=== PATIENT | female | born 1970 | race Caucasian/White ===

== ENCOUNTER → 2022-01-13 15:12 | Outpatient (BNVA) | payer BC, MEDICAID, SELFPAY | PROVIDERS: Family Provider Nurse Practitioner Family; PCP Registered Nurse; Visit Provider Surgery | DX: K42.9 Umbilical hernia without obstruction or gangrene (principal); Z12.11 Encounter for screening for malignant neoplasm of colon | CPT/HCPCS: 99203 ==

== ENCOUNTER 2022-02-25 06:41 | Day surgery (SDC) | payer BC, MEDICAID, SELFPAY ==
--- NOTE | 2022-02-25 06:17 | W.PM.OPSFHP ---
Same Day Surgery H&P Indication for Procedure/HPI DATE OF PROCEDURE: February 25, 2022 CHIEF COMPLAINT/INDICATIONFOR SURGICAL PROCEDURE: Screening colonoscopy PREOP DIAGNOSIS: Screening colonoscopy PLANNED PROCEDURE: Operation Date: 02/25/22 08:15 Proposed Procedures p Colonoscopy 14661,Z12.11(Not Applicable) - Matty Sierra MD 01/13/2022 This is a pleasant 51 years old female patient is referred to my practice with reducible periumbilical hernia.? Patient intermittently develops symptoms and discomfort with the hernia but for the most part she is able to reduce it back.? Patient also is due for screening colonoscopy as she never had one before.? Unfortunately she continues to smoke 1 pack/day but she did cut down from 2 packs/day.? She denies colon cancer history. Interim history 02/25/2022 Patient comes today for screening colonoscopy ROS All systems have been reviewed negative except as for the above or per problem list. Medications/Allergies* Home Medications Medication Instructions Recorded Confirmed Type THC gummy 1 gummy as directed PRN PRN Pain 01/13/22 02/25/22 History aspirin 81 mg tablet,delayed 81 mg PO DAILY 02/23/22 02/25/22 History release Allergies/Adverse Reactions Allergy/AdvReac Type Severity Reaction Status Date / Time Sulfa (Sulfonamide Allergy Unknown Verified 02/25/22 06:18 Antibiotics) Pertinent History/Comorbid Conditions* Family History (Updated 01/06/22 @ 15:46 by Silvana Castro LPN) Lupus Mother CHF (congestive heart failure) Mother Cancer Father bladder Social History Smoking and tobacco status: current every day smoker Alcohol intake: never Adopted: No Caregiver/support person: No Lives independently: No service: No Current occupational status: employed Sexually active: Yes Current gender identity: Female Pertinent Exam Findings alert, oriented x 3, regular rate & rhythm and procedure specific exam findings (Abdominal examination nontender nondistended soft stable hernia exam) Recommendations Surgery/Procedure today (Screening colonoscopy) Coding Level of Care Code Acute Dictating Transcribing Machine Servicer for Doroteo Casas
[2022-02-25 07:11] VITALS: BP 134/92; PULSE 69; RESP 16; TEMP 36.9; O2SAT 94
[2022-02-25] MEDS: sodium chloride 0.9% 1,000 ML 30 ML IV (07:19)
--- NOTE | 2022-02-25 08:03 | ANES.PREANE2 ---
Pre-Anesthetic Assessment Height/Weight: Height 1.55 m Weight 77.111 kg Temp Pulse Resp BP Pulse Ox O2 Del Method 98.4 F 69 16 134/92 94 02/25/22 07:11 02/25/22 07:11 02/25/22 07:11 02/25/22 07:11 02/25/22 07:11 02/25/22 07:11 Preop Diagnosis: Screening colonoscopy Operation Date: 02/25/22 08:15 Proposed Procedures p Colonoscopy 31178,Z12.11(Not Applicable) - Matty Sierra MD Familial anesthetic complications: Daughter has a rash, patient denies hx of complications Was Beta Maria Teresa taken within 24 hours: N/A Was Clonidine taken within 24 hours: N/A Last intake: Intake Last Liquid Date 02/24/22 Last Liquid Time 22:30 Last Solid Date 02/23/22 Last Solid Time 00:00 Social Tobacco and No alcohol Exam alert, oriented x 3, clear to auscultation bilaterally and regular rate & rhythm Airway Submandibular: within normal limits Cervical ROM: within normal limits Mallampati: Class II Dentition: false Pulmonary None reported CV/HEM Coronary Artery Disease (Hx of cardiac stents ) and Myocardial Infarction METS > 4 None reported Hepatic None reported GI Gastroesophageal Reflux Disease (Well controlled ) Metabolic None reported Musc/skel None reported Neuropsych None reported Anesthetic Plan ASA status: 3 Anesthesia: Anesthesia Evaluation Other: I discussed with the patient risks, goals, and benefits of MAC and general anesthesia. We discussed spectrum of MAC anesthesia including conversion to general as well as possibility of recall of intraoperative stimuli including discomfort/pain. Patient agrees to proceed with MAC. Risk of > 500 ml blood loss (7ml/kg in children): No Medications/Allergies Home Medications Medication Instructions Recorded Confirmed Last Taken Type THC gummy 1 gummy as directed PRN PRN Pain 01/13/22 02/25/22 02/22/22 History aspirin 81 mg tablet,delayed 81 mg PO DAILY 02/23/22 02/25/22 02/20/22 History release Allergies Allergy/AdvReac Type Severity Reaction Status Date / Time Sulfa (Sulfonamide Allergy Unknown Verified 02/25/22 06:18 Antibiotics) Current Medications Generic Name Dose Route Start Last Admin Trade Name Freq PRN Reason Stop Dose Admin Sodium Chloride 1,000 mls @ 30 mls/hr 02/25/22 07:00 02/25/22 07:19 Sodium Chloride 0.9% IV 02/26/22 06:59 30 mls/hr .Q24H JENNIE Administration PFSH Anesthesia Medical History CAD (coronary artery disease) Smoking Surgical History Stented coronary artery Family History Mother Lupus CHF (congestive heart failure) Father Cancer bladder Social History Smoking and tobacco status: current every day smoker Alcohol intake: never Adopted: No Caregiver/support person: No Lives independently: No service: No Current occupational status: employed Sexually active: Yes Current gender identity: Female Data Anesthesia Cardiac Studies: No Data to Display
[2022-02-25 08:39] VITALS: BP 131/72; PULSE 73; RESP 16; TEMP 36.1; O2SAT 94
--- NOTE | 2022-02-25 08:47 | ANE.PACU2 ---
Inpatient post-anesthesia follow up: Airway intact: Yes Vital signs: Temperature 97 F Pulse Rate 73 Respiratory Rate 16 Blood Pressure 131/72 Pulse Oximetry 94 Oxygen Delivery Me thod Room Air Oxygen Flow Rate Fraction of Inspir ed Oxygen Hydration adequate: Yes Nausea and vomiting: No Pain level: 1 Mental status: Baseline
[2022-02-25 08:51] VITALS: BP 124/85; PULSE 70; RESP 18; O2SAT 96
== END 2022-02-25 09:06 | disposition home or self-care (01) ==
PROVIDERS: PCP Registered Nurse; Visit Provider Surgery
PROC: 0DJD8ZZ Inspection of Lower Intestinal Tract, Via Natural or Artificial Opening Endoscopic (ICD-10-PCS; CPT 45378; principal; 2022-02-25 08:15)
DX: Z12.11 Encounter for screening for malignant neoplasm of colon (principal); K63.5 Polyp of colon; K21.9 Gastro-esophageal reflux disease without esophagitis; I25.10 Atherosclerotic heart disease of native coronary artery without angina pectoris; F17.200 Nicotine dependence, unspecified, uncomplicated; Z79.82 Long term (current) use of aspirin; Z95.5 Presence of coronary angioplasty implant and graft; Z88.2 Allergy status to sulfonamides
CPT/HCPCS: 45385; 88305; J2704; J7030

== ENCOUNTER 2022-05-19 08:47 | Outpatient (CLI) | payer BC, MEDICAID, SELFPAY ==
--- NOTE | 2022-05-19 08:54 | MM_ITS ---
WS: [id number] SCREENING DIGITAL TOMOSYNTHESIS MAMMOGRAM WITH CAD HISTORY: SCREENING COMPARISON: 07/14/2017 and 12/05/2016 Bilateral CC and MLO with tomosynthesis views submitted. Synthetic mammography reviewed. Computer aid ed detection analyzed. Breast composition: There are scattered areas of fibroglandular density. No suspicious masses, microc alcifications or architectural distortion. Stable lymph node in the posterior LEFT breast. MM/[place] [id number] IMPRESSION: BI-RADS: 2-Benign FOLLOW UP: 1 Year Follow-up
== END 2022-05-19 08:48 | disposition home or self-care (01) ==
PROVIDERS: PCP Registered Nurse; Visit Provider Registered Nurse
DX: Z12.31 Encounter for screening mammogram for malignant neoplasm of breast (principal)
CPT/HCPCS: 77063; 77067

== ENCOUNTER 2022-05-25 16:15 | Inpatient (IN) | payer BC, MEDICAID, SELFPAY ==
[2022-05-25] VITALS (24 sets, daily range): BP systolic 116–181; BP diastolic 71–130; PULSE 72–103; RESP 12–19; TEMP 36.5–36.9; O2SAT 93–100; BMI 32.1
--- NOTE | 2022-05-25 16:37 | ECG_ITS ---
[facility] Test Date: 2022-05-25 Pat Name: Liz Hilton Department: Room: Gender: Female Rental Manager: : 1970 Requested By: Nabil Collado Order Number: [id number] Jeremy MD: Dillon Diaz M.D. Measurements Intervals [place] Rate: 87 P: 67 FL: 136 QRS: 80 QRSD: 98 T: 81 QT: 327 QTc: 394 Interpretive Statements SINUS RHYTHM MINIMAL ST DEPRESSION [0.025+ mV ST DEPRESSION] Poor R wave progression No previous ECG available for comparison Electronically Signed On 05-26-2022 12:33:45 POWERTRAIN CALIBRATION ENGINEER by Dillon Diaz M.D. [id number]
--- NOTE | 2022-05-25 16:37 | XRR_ITS ---
PROCEDURE INFORMATION: Exam: XR Chest Exam date and time: 05/25/2022 5:48 PM Age: 52 years old Clinical indication: Pain; Angina pectoris; Additional info: Chest pain TECHNIQUE: Imaging protocol: Radiologic exam of the chest. Views: 1 view. COMPARISON: CT abdomen pelvis con [id number] 05/14/2018 1:34 PM FINDINGS: Lungs: Unremarkable. No consolidation. Pleural spaces: Unremarkable. No pleural effusion. No pneumothorax. Heart/Mediastinum: Unremarkable. No cardiomegaly. Bones/joints: Unremarkable. XR/XR chest 1V portable [id number] IMPRESSION: No acute findings.
--- NOTE | 2022-05-25 16:43 | W.ED.CHESTPA ---
HPI - Chest Pain General: Chief Complaint: Chest Pain Stated Complaint: cp Time Seen by Provider: 05/25/22 16:37 Source: patient Mode of arrival: ambulatory History of Present Illness: 52-year-old female presents to the emergency room with complaints of chest pain radiating to the left arm its been going on for the last 2 weeks. She has had some cough cold and congestion tonight same time no fever cough is been nonproductive. She has a known history of coronary disease and previously had stents. MD complaint: chest heaviness and chest discomfort Pertinent past history: coronary artery disease Onset (ago): week(s) (1) Timing of current episode: episodic Prior episodes: Yes Pain location: left chest Pain radiation: left arm, left shoulder and right shoulder Quality: heaviness Associated symptoms: Deny abdominal pain, diaphoresis, dyspnea, fever(s), leg edema, nausea, palpitations, sense of impending doom, syncope or vomiting Review of Systems Const: Denies: fever(s), chills, fatigue, malaise or diaphoresis ENMT: Denies: throat pain, ear or mastoid pain, nasal discharge or nasal congestion Card: Reports: chest pain; Denies: palpitations, irregular heart rhythm, edema or syncope Resp: Reports: non-productive cough; Denies: dyspnea, productive cough or wheezing GI: Denies: abdominal pain, nausea or vomiting : Denies: flank pain, difficulty voiding, dysuria, urinary frequency or urinary urgency Skin/Breast: Denies: rash or pruritus PFSH ED PFSH: Medical History CAD (coronary artery disease) Colon polyp History of myocardial infarction Lipoma of back Smoking Surgical History History of oophorectomy Stented coronary artery Family History Mother Lupus CHF (congestive heart failure) Father Cancer bladder Social History Smoking and tobacco status: current every day smoker Alcohol intake: never Adopted: No Caregiver/support person: No Lives independently: No service: No Current occupational status: employed Sexually active: Yes Current gender identity: Female Physical Exam Const: GENERAL APPEARANCE: cooperative and comfortable ORIENTATION/CONSCIOUSNESS: Yes awake, Yes oriented to person, Yes oriented to place and Yes oriented to time HENMT: COMMON NORMALS: normocephalic, atraumatic and hearing grossly normal bilaterally HEAD & SCALP: normocephalic and atraumatic Resp: COMMON NORMALS: normal respiratory effort, No retractions, No use of accessory muscles and clear to auscultation bilaterally AUSCULTATION: clear to auscultation bilaterally Cardio: COMMON NORMALS: regular rate, regular rhythm and No murmurs present (Cardio) RATE: regular rate RHYTHM: regular rhythm GI: COMMON NORMALS: Soft to palpation and No hepatosplenomegaly present AUSCULTATION: Yes normoactive bowel sounds PALPATION: Yes Soft to palpation, No Tenderness to palpation present (GI), No Guarding due to palpation present (GI) and Yes No hepatosplenomegaly present Extremity: COMMON NORMALS: normal to inspection, capillary refill normal, no clubbing, cyanosis or edema, no calf tenderness and no pedal edema Neuro: SENSORIUM/ORIENTATION: Yes oriented to person, Yes oriented to place and Yes oriented to time Skin: COMMON NORMALS: no rashes or lesions noted GENERAL SKIN EXAM: no rashes or lesions noted Course Vital Signs: Vital signs: Vital Signs Temperature 98.4 F 05/27/22 09:41 Pulse Rate 70 05/27/22 09:44 Respiratory Rate 18 05/27/22 09:44 Blood Pressure 155/88 05/27/22 09:41 Pulse Oximetry 97 05/27/22 09:44 Oxygen Delivery Me thod 05/27/22 09:44 MDM - Chest Pain Medical Decision Making Patient has known coronary artery disease concerning escalating angina and uncontrolled hypertension over the last week. The first troponin is elevated EKG does not show any acute changes. She was given aspirin discussed with hospitalist will admit to complete rule out and evaluate for cardiac testing is appropriate. Medical Records I reviewed the patient's medical records. Lab Data I reviewed the patient's lab results. 05/25/22 17:20 05/25/22 17:20 Radiology Impressions Chest X-Ray 05/25/22 16:37 IMPRESSION: No acute findings. Laboratory Results WBC 9.0 10^3/uL (4.0-10.0) 05/26/22 03:32 RBC 4.28 10^6/uL (4.1-5.3) 05/26/22 03:32 Hgb 12.6 g/dL (11.5-15.3) 05/26/22 03:32 Hct 39.6 % (37.0-47.0) 05/26/22 03:32 MCV 92.5 fl (81-99) 05/26/22 03:32 MCH 29.4 pg (28.0-34.0) 05/26/22 03:32 MCHC 31.8 g/dL (30.0-36.0) 05/26/22 03:32 RDW 14.5 % (12.1-15.1) 05/26/22 03:32 Plt Count 155 10^3/cmm (130-400) 05/26/22 03:32 MPV 9.6 fL (7.4-10.4) 05/26/22 03:32 Neut % (Auto) 64.6 % 05/26/22 03:32 Lymph % (Auto) 26.1 % 05/26/22 03:32 Greenlee % (Auto) 7.2 % 05/26/22 03:32 Eos % (Auto) 1.4 % 05/26/22 03:32 Baso % (Auto) 0.4 % 05/26/22 03:32 Neut # (Auto) 5.78 10^3/uL (1.8-7.7) 05/26/22 03:32 Lymph # (Auto) 2.3 10^3/uL (0.8-4.8) 05/26/22 03:32 Greenlee # (Auto) 0.7 10^3/uL (0.2-0.9) 05/26/22 03:32 Eos # (Auto) 0.1 10^3/uL (0.0-0.8) 05/26/22 03:32 Baso # (Auto) 0.0 10^3/uL (0.0-0.1) 05/26/22 03:32 Nucleated RBC % (auto) 0 % 05/26/22 03:32 Nucleated RBCs # 0.0 /100WBC 05/26/22 03:32 D-Dimer 0.40 ug/mIFEU (0-0.59) 05/25/22 19:15 Sodium 138 mmol/L (136-145) 05/26/22 03:32 Potassium 4.1 mmol/L (3.5-5.1) 05/26/22 03:32 Chloride 105 mmol/L (98-107) 05/26/22 03:32 Carbon Dioxide 24 mmol/L (22-29) 05/26/22 03:32 Anion Gap 13.1 (5-19) 05/26/22 03:32 BUN 10 mg/dL (6-20) 05/26/22 03:32 Creatinine 0.6 mg/dL (0.5-0.9) 05/26/22 03:32 GFR Calculation 105.8 mL/min (90-130) 05/26/22 03:32 Glucose 109 mg/dL (65-115) 05/26/22 03:32 Calculated Osmolality 286 mOsm/kg (285-295) 05/26/22 03:32 Calcium 8.7 mg/dL (8.5-10.5) 05/26/22 03:32 Magnesium 2.0 mg/dL (1.7-2.3) 05/26/22 03:32 Total Bilirubin 0.2 mg/dL (0.15-1.2) 05/25/22 17:20 AST 14 U/L (0-32) 05/25/22 17:20 ALT 12 U/L (0-33) 05/25/22 17:20 Alkaline Phosphatase 125 U/L (35-105) H 05/25/22 17:20 Troponin T Gen 5 ng/L 977 ng/L (0-10) H* 05/26/22 08:40 Troponin T Baseline 98 ng/L (0-10) H 05/25/22 17:20 Troponin T 120 Minute 180.4 ng/L (0-10) H 05/25/22 20:14 Delta Troponin T 82.4 ABS# (0-10) H* 05/25/22 20:14 Troponin T Hi Sens 6Hr 322.1 ng/L (0-10) H 05/25/22 23:24 Troponin T Hi Sens 6Hr Delta 224.1 ng/L (0-12) H* 05/25/22 23:24 C-Reactive Protein 26.3 mg/L (0.0-4.9) H 05/26/22 03:32 Total Protein 7.4 g/dL (6.6-8.7) 05/25/22 17:20 Albumin 4.1 g/dL (3.5-5.2) 05/25/22 17:20 Globulin 3.3 g/dL (1.3-4.6) 05/25/22 17:20 Vitamin B12 273 pg/mL (232-1245) 05/25/22 20:14 TSH 1.89 uIU/mL (0.27-4.20) 05/25/22 20:14 Urine Opiates Screen Negative ng/mL (Negative) 05/25/22 19:20 Ur Barbiturates Screen Negative ng/mL (Negative) 05/25/22 19:20 Ur Phencyclidine Scrn Negative ng/mL (Negative) 05/25/22 19:20 Ur Amphetamines Screen Negative ng/mL (Negative) 05/25/22 19:20 U Benzodiazepines Scrn Negative ng/mL (Negative) 05/25/22 19:20 Urine Cocaine Screen Negative ng/mL (Negative) 05/25/22 19:20 U Marijuana (THC) Screen Positive ng/mL (Negative) H 05/25/22 19:20 Discharge Plan Discharge Patient Disposition: Admitted As Inpatient Admit Provider: Shelley Bolanos Clinical Impression: Non-ST elevation TN (NSTEMI), Hypertension, Stable angina Condition: Stable Coding Level of Care Code ED Educational Technology Coordinator for Carolg Fwd Exam Detailed
[2022-05-25 17:31] LABS: Basophils % 0.3 %; Eosinophils # 0.1 10^3/uL (0.0-0.8); Eosinophils % 1.5 %; Hematocrit 42.8 % (37.0-47.0); Hemoglobin 13.9 g/dL (11.5-15.3); Lymphocytes # 2.7 10^3/uL (0.8-4.8); Mean Corpuscular HGB Conc 32.5 g/dL (30.0-36.0); Mean Corpuscular Hemoglobin 29.6 pg (28.0-34.0); Mean Corpuscular Volume 91.3 fl (81-99); Mean Platelet Volume 9.4 fL (7.4-10.4); Monocytes # 0.5 10^3/uL (0.2-0.9); Monocytes % 5.7 %; Neutrophils # 5.62 10^3/uL (1.8-7.7); Neutrophils % 62.2 %; Nucleated Red Blood Cells % 0 %; Platelet Count 193 10^3/cmm (130-400); Red Blood Count 4.69 10^6/uL (4.1-5.3); Red Cell Distribution Width 14.4 % (12.1-15.1); White Blood Count 9.1 10^3/uL (4.0-10.0)
[2022-05-25 17:50] LABS: Troponin(5th) Baseline 98 ng/L (0-10)
[2022-05-25 17:52] LABS: Alanine Aminotransferase 12 U/L (0-33); Albumin Level 4.1 g/dL (3.5-5.2); Alkaline Phosphatase 125 U/L (35-105); Aspartate Amino Transferase 14 U/L (0-32); Blood Urea Nitrogen 11 mg/dL (6-20); Calcium 9.2 mg/dL (8.5-10.5); Carbon Dioxide 23 mmol/L (22-29); Chloride 104 mmol/L (98-107); Globulin 3.3 g/dL (1.3-4.6); Glomerular Filtration Rate 105.8 mL/min (90-130); Glucose 101 mg/dL (65-115); Osmolality Calculated 290 mOsm/kg (285-295); Sodium 140 mmol/L (136-145); Total Bilirubin 0.2 mg/dL (0.15-1.2); Total Protein 7.4 g/dL (6.6-8.7)
--- NOTE | 2022-05-25 18:28 | ECG_ITS ---
[facility] Test Date: 2022-05-25 Pat Name: Liz Hilton Department: Room: 102 Gender: Female Dentistry Professor: : 1970 Requested By: Nabil Collado Order Number: [id number] Jeremy MD: Dillon Diaz M.D. Measurements Intervals [place] Rate: 90 P: 138 FL: 136 QRS: 132 QRSD: 99 T: 212 QT: 385 QTc: 472 Interpretive Statements SINUS RHYTHM ARM LEADS REVERSED [INVERTED P AND QRS IN I] Compared to ECG 05/25/2022 16:29:04 Diffuse T wave changes in the anterolateral and inferior leads. ST (T wave) deviation no longer present Electronically Signed On 05-26-2022 12:47:21 MANAGER ZONE by Dillon Diaz M.D. [id number]
[2022-05-25] MEDS: aspirin 81 mg Chew Tablet 324 MG PO (18:42)
[2022-05-25] MEDS: nitroglycerin 1 gm/inch oint Pkt 1 INCH TOPICAL (18:43)
[2022-05-25] MEDS: morphine 4 mg/mL SDV 1 mL IVP (18:43)
[2022-05-25] MEDS: ondansetron 2 mg/ML SDV 2 mL 4 MG IVP (18:43)
[2022-05-25] MEDS: enoxaparin 80 mg/0.8 mL Syringe SUBCUT (18:43)
--- NOTE | 2022-05-25 18:53 | P.HP_ITS ---
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 Today when she was at work around noon she started experiencing chest pain with shortness of breath when she took out x-ray of turkey, it was approximately 10 pounds. She did not denies any fever, nausea, vomiting or diarrhea. No recent sickness. She is stating that sometimes her pain would radiate towards her left axilla and moved towards her back. She is stating that this pain is different when she had a stent placement in 2012. Patient is stating that her chest pain would sometimes get better on leaning forward. Patient is stating that she is clean and only smoking 4 to 5 cigarettes a day and does marijuana occasionally for anxiety Her only medication at home is aspirin In the ER her first troponin is 98 hospitalist has been called to admit her because of her symptoms, patient is chest pain-free at the time of my evaluation She is hypertensive, diastolic blood pressure is above 100 She has received therapeutic dose of aspirin and Lovenox, EKG is unremarkable I have requested D-dimer Review of Systems Const: Denies: fever(s) Eyes: Denies: change in vision ENMT: Denies: throat pain Card: Reports: chest pain Resp: Reports: dyspnea GI: Denies: abdominal pain : Denies: flank pain Musc: Denies: neck pain Skin/Breast: Denies: rash Neuro: Denies: headache(s) Psych: Reports: anxiety Endo: Denies: polyuria Maynor/Lymph: Denies: easy bruising All/Imm: Denies: urticaria Medications/Allergies Home Medications Medication Instructions Recorded Confirmed Last Taken Type THC gummy 1 gummy as directed PRN PRN Pain 01/13/22 05/22/22 02/22/22 History aspirin 81 mg tablet,delayed 81 mg PO DAILY 02/23/22 05/22/22 02/20/22 History release Allergies Allergy/AdvReac Type Severity Reaction Status Date / Time Sulfa (Sulfonamide Allergy Unknown Verified 05/22/22 06:55 Antibiotics) PFSH Acute PFSH: Medical History CAD (coronary artery disease) Colon polyp History of myocardial infarction Lipoma of back Smoking Surgical History (Updated 05/25/22 @ 19:16 by Shelley Bolanos MD) History of oophorectomy Stented coronary artery Family History Mother Lupus CHF (congestive heart failure) Father Cancer bladder Social History Smoking and tobacco status: current every day smoker Alcohol intake: never Adopted: No Caregiver/support person: No Lives independently: No service: No Current occupational status: employed Sexually active: Yes Current gender identity: Female Vitals/I&O/Wt Last Vital Signs Temp 98.3 F 05/25/22 16:19 Pulse 99 05/25/22 18:45 Resp 14 05/25/22 18:45 BP 168/107 05/25/22 18:45 Pulse Ox 98 05/25/22 18:45 O2 Del Method 05/25/22 16:19 Weight last 48 hrs Weight 77.111 kg Physical Exam Narrative: Patient is chest pain-free Awake and alert Euvolemic Hypertensive S1, S2 No audible stridor or wheezing Abdomen soft Awake and alert Nonfocal neuro exam Pleasant and cooperative Appropriate mood and affect Data 05/25/22 17:20 05/25/22 17:20 A&P Assessment and plan (1) CAD (coronary artery disease): (2) Stented coronary artery: (3) Smoking: (4) NSTEMI (non-ST elevated myocardial infarction): Plan Unstable angina First troponin 98 Nonischemic EKG Chest pain-free History of coronary disease Her only medication is aspirin She is hypertensive, will add chlorthalidone, lisinopril and metoprolol succinate Start ACS protocol for NSTEMI/high troponin I will trend her second and 6-hour troponin to decide whether we need to go for cardiac stress test versus angiogram Currently she is chest pain-free Will request D-dimer and drug screen Cardiac diet Check A1c level and B12 Patient is trying to quit smoking smoking 4 to 5 cigarettes a day N.p.o. after midnight DVT prophylaxis covered with therapeutic Lovenox Attestations Medical Necessity Statement*: Anticipating discharge within 48 hours Time Spent in Patient Care: 40 Coding Level of Care Code Acute Card Grader for Doroteo Casas Diagnoses CAD (coronary artery disease) I25.10 Stented coronary artery Z95.5 Smoking F17.200 NSTEMI (non-ST elevated myocardial infarction) I21.4
[2022-05-25] MEDS: hyDRALAzine 20 mg/mL INJ 1 mL 10 MG IVP (19:26)
[2022-05-25 19:37] LABS: Amphetamines Screen Urine Negative (Negative); Barbiturates Screen Urine Negative (Negative); Benzodiazepines Screen Urine Negative (Negative); Cocaine Screen Urine Negative (Negative); Opiate Screen Urine Negative (Negative); PCP Screen Urine Negative (Negative)
[2022-05-25 19:38] LABS: THC Screen Urine Positive (Negative)
--- NOTE | 2022-05-25 20:50 | USCV_ITS ---
Liz Hilton Age: 52 Gender: F : 1970 Exam Date: 05/25/2022 21:08 Ordering Phys: Shelley Bolanos MD Technologist: EMILIANO Exam Location: [facility] Indication: NSTEMI, history of cardiac stenting 2012 BP: 162 / 106 HR: 83 Rhythm: Sinus Technical Quality: Adequate MEASUREMENTS (Male / Female) Normal Values 2D ECHO LV Diastolic Diameter PLAX 4.8 cm 4.2 - 5.9 / 3.9 - 5.3 cm LV Systolic Diameter PLAX 3.1 cm IVS Diastolic Thickness 1.4 cm 0.6 - 1.0 / 0.6 - 0.9 cm IVS Systolic Thickness 2.0 cm LVPW Diastolic Thickness 1.8 cm 0.6 - 1.0 / 0.6 - 0.9 cm LVPW Systolic Thickness 2.2 cm LVOT Diameter 2.1 cm LV Ejection Fraction 2D Teich 63.6 % LV Ejection Fraction MOD 2C 68.0 % LV Ejection Fraction 2C AL 70.0 % LA Diameter 3.5 cm LA Width 3.4 cm LA Height 4.4 cm RA Width 3.1 cm RA Height 3.9 cm Aorta at Sinotubular Diameter 3.0 cm IVC Diameter 1.7 cm M-MODE Aortic Annulus Diameter 3.0 cm LA Ao Ratio MM 1.2 MV E Point Septal Separation 0.5 cm DOPPLER AV Peak Velocity 140.0 cm/s LVOT Peak Velocity 69.0 cm/s AV Area Cont Eq vti 1.7 cm squared AV Area Cont Eq pk 1.7 cm squared MV Peak Velocity 98.0 cm/s MV Area PHT 3.2 cm squared Mitral E to A Ratio 0.9 MV E' Velocity 42.0 cm/s Mitral E to MV E' Ratio 13.3 Mitral E to LV E' Lateral Ratio 13.7 Mitral E to LV E' Septal Ratio 12.8 TV Peak E Velocity 69.0 cm/s PV Peak Velocity 120.0 cm/s RV Acceleration Time 0.1 s RV Ejection Time 0.3 s RV AcT/ET 0.3 FINDINGS Left Ventricle Normal LV size with diminished ejection fraction of 45 to 50%. Moderate diffuse hypokinesia of the mid and apical septum and anteroseptal segments. Mild hypokinesia of the basal inferior segment also was noted.Grade I/IV diastolic dysfunction (abnormal relaxation filling pattern), normal to mildly elevated filling pressures. Right Ventricle The right ventricle is normal in size and function. Right Atrium The right atrium is normal in size. Left Atrium The left atrium is normal in size. Mitral Valve Mild mitral valve regurgitation. Aortic Valve No gross abnormalities noted Tricuspid Valve No gross abnormalities noted Pulmonic Valve Trace pulmonary valve regurgitation. Pericardium No pericardial effusion. Aorta Normal ascending aorta dimension. IVC The inferior vena cava appears normal. CONCLUSIONS Normal LV size with diminished ejection fraction of 45 to 50%. Moderate diffuse hypokinesia of the mid and apical septum and anteroseptal segments. Mild hypokinesia of the basal inferior segment also was noted.Grade I/IV diastolic dysfunction (abnormal relaxation filling pattern), normal to mildly elevated filling pressures. Mild mitral valve regurgitation. Trace pulmonary valve regurgitation. There is no pericardial effusion. There are no intracardiac masses. No similar previous studies are available for comparison Dr Dillon Diaz MD [facility] (Electronically Signed) Final Date: 26 May 2022 00:08 S
[2022-05-25 21:08] LABS: Troponin 5 2HR 180.4 ng/L (0-10); Troponin 5 2HR Delta 82.4 ABS# (0-10)
[2022-05-25] MEDS: clopidogrel 300 mg Tablet PO (22:30)
[2022-05-25] MEDS: metoprolol succinate ER (24 HR) 25 mg Tablet PO (22:31)
[2022-05-25] MEDS: lisinopril 10 mg Tablet PO (22:31)
--- NOTE | 2022-05-25 22:36 | ECG_ITS ---
[facility] Test Date: 2022-05-25 Pat Name: Liz Hilton Department: Room: 102 Gender: Female Facilities Supervisor: : 1970 Requested By: Nabil Collado Order Number: [id number] Jeremy MD: Dillon Diaz M.D. Measurements Intervals [place] Rate: 74 P: 60 NV: 147 QRS: 90 QRSD: 90 T: 214 QT: 412 QTc: 458 Interpretive Statements SINUS RHYTHM WITH SINUS ARRHYTHMIA ST DEVIATION AND MARKED T-WAVE ABNORMALITY, CONSIDER ANTEROLATERAL ISCHEMIA [-0.5+ mV T-WAVE IN I/aVL/V3-V6] ST DEVIATION AND MODERATE T-WAVE ABNORMALITY, CONSIDER INFERIOR ISCHEMIA [-0.1+ mV T-WAVE IN II/aVF] Compared to ECG 05/25/2022 18:28:12 T-wave abnormality now present Possible ischemia now present Electronically Signed On 05-26-2022 12:48:35 PUBLIC WORKS INSPECTOR by Dillon Diaz M.D. [id number]
[2022-05-25] MEDS: morphine IR 15 mg Tablet PO (22:42)
[2022-05-25 23:43] LABS: Thyroid Stimulating Hormone 1.89 uIU/mL (0.27-4.20); Vitamin B12 273 pg/mL (232-1245)
[2022-05-26] VITALS (13 sets, daily range): BP systolic 110–138; BP diastolic 62–87; PULSE 68–87; RESP 16–25; TEMP 36.8–37.1; O2SAT 93–96
[2022-05-26 00:50] LABS: Troponin 5 6HR 322.1 ng/L (0-10); Troponin 5 6HR Delta 224.1 ng/L (0-12)
[2022-05-26 04:02] LABS: Basophils % 0.4 %; Eosinophils # 0.1 10^3/uL (0.0-0.8); Eosinophils % 1.4 %; Hematocrit 39.6 % (37.0-47.0); Hemoglobin 12.6 g/dL (11.5-15.3); Lymphocytes # 2.3 10^3/uL (0.8-4.8); Lymphocytes % 26.1 %; Mean Corpuscular HGB Conc 31.8 g/dL (30.0-36.0); Mean Corpuscular Hemoglobin 29.4 pg (28.0-34.0); Mean Corpuscular Volume 92.5 fl (81-99); Mean Platelet Volume 9.6 fL (7.4-10.4); Monocytes # 0.7 10^3/uL (0.2-0.9); Monocytes % 7.2 %; Neutrophils # 5.78 10^3/uL (1.8-7.7); Neutrophils % 64.6 %; Nucleated Red Blood Cells % 0 %; Platelet Count 155 10^3/cmm (130-400); Red Blood Count 4.28 10^6/uL (4.1-5.3); Red Cell Distribution Width 14.5 % (12.1-15.1)
[2022-05-26 04:27] LABS: Anion Gap 13.1 (5-19); Blood Urea Nitrogen 10 mg/dL (6-20); C Reactive Protein 26.3 mg/L (0.0-4.9); Calcium 8.7 mg/dL (8.5-10.5); Carbon Dioxide 24 mmol/L (22-29); Chloride 105 mmol/L (98-107); Glomerular Filtration Rate 105.8 mL/min (90-130); Glucose 109 mg/dL (65-115); Osmolality Calculated 286 mOsm/kg (285-295); Potassium 4.1 mmol/L (3.5-5.1); Sodium 138 mmol/L (136-145)
[2022-05-26] MEDS: enoxaparin 80 mg/0.8 mL Syringe SUBCUT (05:21)
[2022-05-26] MEDS: acetaminophen 500 mg Tablet PO ×3 (07:29→17:21)
--- NOTE | 2022-05-26 08:11 | PM.PN ---
Subjective Subjective: Patient reports she is currently chest pain free. Complains of left-sided headache. Reports prior titanium stent placed at [facility] in 2013. Reports she has had symptoms for around a week which she initially attributed to stress. Endorses being NPO, but states she would like to eat. Discussed NPO until cardiology evaluation and she is agreeable. Denies other new complaints. Afebrile. Medications: Reviewed: Yes Vitals/I&O/Wt Last Vital Signs Temp 98.6 F 05/26/22 07:11 Pulse 80 05/26/22 07:54 Resp 16 05/26/22 07:54 BP 118/74 05/26/22 07:11 Pulse Ox 96 05/26/22 07:54 O2 Del Method 05/26/22 07:54 05/25/22 05/26/22 05/26/22 22:59 06:59 14:59 Intake Total 720 / 720 Balance 720 / 720 Weight last 48 hrs Weight 77.111 kg Physical Exam Narrative: General: Patient is awake and alert. Head: Normocephalic. Atraumatic. EOM intact. Neck: No JVD. Cardiovascular: RRR. No gallops. No murmurs. Lungs: Clear to auscultation, no use of accessory muscles, no crackles or wheezes. On room air. Skin: No jaundice. No rashes. Abdomen: Normal bowel sounds, abdomen soft and nontender. Genito Urinary: Genital exam not performed since complaints not related. Rectal: Rectal exam not performed since no symptoms indicated blood loss. Extremities: No cyanosis or clubbing. Musculoskeletal: No joint deformities. Neurological: Moves all 4 extremities. No myoclonus. Data 05/26/22 03:32 05/26/22 03:32 A&P Assessment and plan (1) NSTEMI (non-ST elevated myocardial infarction): TTE reviewed, abnormal Cardiology consulted NPO until cardiology evaluation Trend troponin Continue aspirin Continue plavix Continue high intensity statin Continue therapeutic Lovenox Will need cardiac rehab evaluation (2) CAD (coronary artery disease): History of stent 2013 Management as above (3) Smoking: Would benefit from cessation (4) Anxiety: Continue Xanax (5) Hypertension: Continue chlorthalidone Continue lisinopril Continue metoprolol Continue to monitor Plan DVT ppx: Lovenox Code status: Full Cdoe Attestations Medical Necessity Statement*: Patient requires ongoing hospitalization with expected hospitalization to cross two midnights for management of myocardial infarction, titration of antihypertensives, ischemic work up and cardiology evaluation. 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
[2022-05-26] MEDS: chlorthalidone 25 mg Tablet 12.5 MG PO (08:45)
[2022-05-26] MEDS: lisinopril 10 mg Tablet PO (08:45)
[2022-05-26] MEDS: clopidogrel 75 mg Tablet PO (08:45)
[2022-05-26] MEDS: atorvastatin 40 mg Tablet 80 MG PO (08:45)
[2022-05-26] MEDS: aspirin 81 mg EC Tablet PO (08:48)
[2022-05-26] MEDS: metoprolol succinate ER (24 HR) 25 mg Tablet PO (08:48)
[2022-05-26 09:16] LABS: Troponin T (5th) Once 977 ng/L (0-10)
--- NOTE | 2022-05-26 11:05 | PM.CONSULT ---
Providers/Reason For Consult Consulting Physician/Specialty*: Moshe Campbell MD/ Cardiology Reason for Consult*: NSTEMI Requesting Physician: Dr Armas Attending Physician: Aaron Armas MD Primary Care Provider: UDAY Grant History of Present Illness History of Present Illness Liz Hilton is a 52 year old female with past medical history of coronary artery disease status post PCI in 2012, current smoker who presented to the hospital with on and off chest pain and symptoms for the last 1 week. Initially she thought it was secondary to her anxiety and social stressors however yesterday pain got worse and she presented to the hospital. Her initial troponin was elevated and was 98 that has trended up to 977. Echocardiogram shows mildly reduced LV systolic function with EF of 45 to 50% and regional wall motion abnormalities in the anteroseptal, apical and inferior hernandez. Review of Systems Const: Denies: fever(s) Eyes: Denies: change in vision ENMT: Denies: throat pain Card: Reports: chest pain Resp: Reports: dyspnea GI: Denies: abdominal pain : Denies: flank pain Musc: Denies: neck pain Skin/Breast: Denies: rash Neuro: Denies: headache(s) Psych: Reports: anxiety Endo: Denies: polyuria Maynor/Lymph: Denies: easy bruising All/Imm: Denies: urticaria Medications/Allergies Home Medications Medication Instructions Recorded Confirmed Last Taken Type THC gummy 1 gummy as directed PRN PRN Pain 01/13/22 05/25/22 02/22/22 History aspirin 81 mg tablet,delayed 81 mg PO DAILY 02/23/22 05/25/22 02/20/22 History release Allergies Allergy/AdvReac Type Severity Reaction Status Date / Time Sulfa (Sulfonamide Allergy Unknown Verified 05/22/22 06:55 Antibiotics) Current Medications Generic Name Dose Route Start Last Admin Trade Name Freq PRN Reason Stop Dose Admin Acetaminophen 500 mg 05/25/22 20:50 05/26/22 07:29 Acetaminophen 500 Mg Tablet PO 500 mg Q4H PRN Administration fever Aspirin 81 mg 05/26/22 09:00 05/26/22 08:48 Aspirin 81 Mg Ec Tablet PO 81 mg DAILY JENNIE Administration Atorvastatin Calcium 80 mg 05/26/22 09:00 05/26/22 08:45 Atorvastatin 40 Mg Tablet PO 80 mg DAILY JENNIE Administration Chlorthalidone 12.5 mg 05/26/22 09:00 05/26/22 08:45 Chlorthalidone 25 Mg Tablet PO 12.5 mg DAILY JENNIE Administration Clopidogrel Bisulfate 75 mg 05/26/22 09:00 05/26/22 08:45 Clopidogrel 75 Mg Tablet PO 75 mg DAILY JENNIE Administration Enoxaparin Sodium 80 mg 05/26/22 06:00 05/26/22 05:21 Enoxaparin 80 Mg/0.8 Ml Syringe SUBCUT 80 mg Q12H JENNIE Administration Lisinopril 10 mg 05/25/22 20:50 05/26/22 08:45 Lisinopril 10 Mg Tablet PO 10 mg DAILY JENNIE Administration Metoprolol Succinate 25 mg 05/25/22 20:50 05/26/22 08:48 Metoprolol Succinate Er (24 Hr) 25 Mg Tablet PO 25 mg DAILY JENNIE Administration Morphine Sulfate 15 mg 05/25/22 20:50 05/25/22 22:42 Morphine Ir 15 Mg Tablet PO 15 mg Q6H PRN Administration pAIN Senna/Docusate Sodium 1 tab 05/26/22 09:00 05/26/22 08:49 Sennosides-Docusate Tablet PO Not Given DAILY JENNIE PFSH Acute PFSH: Medical History CAD (coronary artery disease) Colon polyp History of myocardial infarction Lipoma of back Smoking Surgical History History of oophorectomy Stented coronary artery Family History Mother Lupus CHF (congestive heart failure) Father Cancer bladder Social History Smoking and tobacco status: current every day smoker Alcohol intake: never Adopted: No Caregiver/support person: No Lives independently: No service: No Current occupational status: employed Sexually active: Yes Current gender identity: Female Vitals/I&O/Wt Last Vital Signs Temp 98.6 F 05/26/22 07:11 Pulse 80 05/26/22 07:54 Resp 16 05/26/22 07:54 BP 118/74 05/26/22 07:11 Pulse Ox 96 05/26/22 07:54 O2 Del Method 05/26/22 07:54 05/25/22 05/26/22 05/26/22 22:59 06:59 14:59 Intake Total 720 / 720 0 / 0 Balance 720 / 720 0 / 0 Weight last 48 hrs Weight 170 lb Physical Exam Narrative: GENERAL: Patient is alert, awake and oriented x3. [] NECK: No jugular vein distension. [] HEENT: No cyanosis. No icterus. No pallor. [] HEART: Regular S1 and S2. No murmur, rub or gallop. [] LUNGS: Clear to auscultate bilaterally. [] ABDOMEN: Soft, nontender and nondistended. Positive bowel sounds. No guarding, rebound or tenderness. [] CENTRAL NERVOUS SYSTEM: Grossly nonfocal. [] EXTREMITIES: Lower extremities with 1+ edema bilaterally. Pulses palpable in the lower extremities, both dorsalis pedis and posterior tibial. [] Data 05/26/22 03:32 05/26/22 03:32 A&P Assessment and plan (1) NSTEMI (non-ST elevated myocardial infarction): (2) Smoking: (3) CAD (coronary artery disease): (4) Hypertension: Plan Patient has presented with non-ST elevation UT. Currently chest pain free but EKG changes are dynamic and have significant T wave inversions in anterior leads. Continue aspirin and Plavix. Continue anticoagulation. N.p.o. We will proceed with coronary angiogram today afternoon. Thank you for involving us with care of this patient. We will continue to follow. Please call with questions Consult Attestations Medical Necessity Statement: Care expected to cross 2 midnights. 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
--- NOTE | 2022-05-26 15:58 | XACV_ITS ---
Exam Room: [facility] Ht: 155 cm Wt: 77 kg BSA: 1.85 m2 Gender: Female : 1970 Any Known Allergies: Sulfa Exam Priority: Routine Procedure(s): Procedure Description: Diagnostic procedure Procedure Description: PCI procedure Procedure Description: Left Heart Catheterization Procedure Description: Drug Eluting Coronary Stent Procedure Description: PTCA Procedure Description: Miscellaneous Procedure Description: ACT Procedure Description: Coronary Angiography Diagnostic Cath Status: Urgent Diagnostic Findings * Proximal Left Anterior Descending: critical 95% stenosis, RONAL: 2 flow. After the stenosis there is a small to medium size diagonal artery that is free of significant disease.. * Left Main has no disease. * Circumflex has no disease. * Mid Right Coronary Artery to Distal Right Coronary Artery: total occlusion, RONAL: 0 flow. * Coronary angiography shows right dominance. PCI Status: Urgent PCI Indication: NSTE - ACS Interventional Findings * Procedure detail:. We engaged left main artery with XB 3.0 guide catheter. IV heparin was administered to maintain ACT above 250 S. 0.014 run-through guidewire was used to cross the critical proximal LAD stenosis and was put in the apical vessel. We predilated the stenosis with 2.5 x 15 mm semicompliant balloon. This was followed by placement of 3.5 x 18 mm resolute [place] drug-eluting stent. We postdilated the stent with 3.75 x 8 mm NC balloon. At this time final angiogram was performed that showed excellent stent expansion, no residual stenosis and RONAL-3 flow. Guidewire and guide catheter were removed. Patient left the Safety Attendant in a stable condition.. * Proximal Left Anterior Descendin% stenosis treated with a AB TREK 2.50X15 RX BALLOON, ALKA Flood HSAKILA 3.5X18 FLORIAN, and ALKA PERERA EUPHORA RX [id number] BALLOON. 0% residual stenosis, RONAL: 3 flow. Conclusions 1. Critical proximal LAD stenosis s/p successful revascularization with FLORIAN x1.. 2. OPERATOR COMMAND SUPPORT SYSTEMS of RCA. 3. Proximal Left Anterior Descending was treated with a Balloon, Drug Eluting Stent, and Balloon. Recommendations * Continue aspirin and Plavix for at least 1 year. * High intensity statin therapy. * Smoking cessation recommended strongly. * Outpatient cardiology follow-up in 4 weeks. Interventional RX Recommendation: PCI w/o planned CABG Diagnostic RX Recommendation: PCI w/o planned CABG Anticoagulation: Heparin Pressures Phase:Rest AO : 115 / 75 ( 91 ) @ 4:28:00 PM 100 / 78 ( 90 ) @ 4:29:00 PM 100 / 72 ( 86 ) @ 4:34:00 PM 100 / 68 ( 84 ) @ 4:38:00 PM 97 / 77 ( 88 ) @ 4:40:00 PM 90 / 57 ( 73 ) @ 4:44:00 PM 102 / 68 ( 84 ) @ 4:46:00 PM Clinical Evaluation EBL: 5mL-10mL Procedural Details Pre-Procedure Time Out. Identified patient by full name and date of as verbalized by the patient/guarantor. Does the consent match the physician's order: Yes. Accurate & Complete Informed Consent: Yes. Inpatient/Outpatient History & Physical on Chart: Yes. If H&P is completed, is and addenduem needed: No; If yes, is the addendum complete: N/A. Visualize and Verify Site with Patient/Guarantor: N/A. Relevant Radiology Images available: Yes. Pre-op teaching completed and patient verbalized understanding. The risks, benefits, and alternatives of sedation and/or procedure were discussed by physician. The patient agrees to continue. Procedure started. Current Diagnosis : NSTEMI. [facility] Clinical Fraility Score: 3: Managing Well. Safety Attendant Indications: ACS > 24 hours. Chest Pain Symptom Assessment: Typical Angina Symptoms. Correct patient, site and procedure confirmed by cath team. Current diagnosis: NSTEMI. PERRLA. Strong, equal hand manager storage bilaterally. Lungs clear x 5 lobes. IV Site on Arrival: 18 gauge in the left anticubital. IV Fluids: 0.9% NaCl at KVO. 0 mL infused prior to animal laboratory helper. Pre Procedural Pulses: right radial was 3+. Oxygen started at 2liters/min via nasal canula. right groin was prepped with chloroprep then draped in the usual sterile fashion. right radial was prepped with chloroprep then draped in the usual sterile fashion. Baseline sample Acquired. HR: 64 BPM. Physician notified. Physician arrived. Physician scrubbed in. Immediate Pre-Procedure Time Out. Correct Patient: Yes; Correct Procedure: Yes; Correct Site: Yes; Correct Patient Position: Yes; Correct Supplies: Yes; Dried Flammable Prep: Yes; Blood Products Available: N/A;. Lidocaine 1% infiltrated to the right radial. Arterial access obtained. A 5 uzbek TIG catheter in over wire. Multiple views taken of left coronary artery. Catheter redirected to the RCA. Multiple views taken of right coronary artery. Catheter removed over the exchange wire. PCI Indication: NSTE. 6 uzbek XB 3 guide catheter was inserted over the wire. Runthrough guidewire was advanced through the guide catheter to lesion in the prox LAD. Inflation number : 1 A AB TREK 2.50X15 RX BALLOON was prepped and advanced across the Prox LAD , then inflated to 0 KARLIE for 0:22 seconds. Balloon out. Results checked. Inflation Number : 2 A ALKA Flood SHAKILA 3.5X18 FLORIAN -Lot Number# _[id number] EXP:09/29/2024 was prepped and advanced across the Prox LAD. The stent was deployed at 12 KARLIE for 0:29 seconds. Stent balloon out over wire. Results checked. ACT drawn. Results 401 seconds. Therapeutic limits - pre-heparin administration 90-150 seconds and monitoring heparin during a vascular procedure >250 seconds. Inflation number : 3 A ALKA PERERA EUPHORA RX [id number] BALLOON was prepped and advanced across the Prox LAD , then inflated to 12 KARLIE for 0:22 seconds. Inflation number: 4 The MDT DILMA JUNGJUDSONKHUSHI RX [id number] BALLOON was reinflated across the Prox LAD, to 12 KARLIE for 0:16 seconds. Balloon out. Results checked. Wire out. Results checked. Guide catheter out. A TR Band was successful obtaining hemostatsis at the Right Radial artery insertion site. ACT drawn. Results 246 seconds. Therapeutic limits - pre-heparin administration 90-150 seconds and monitoring heparin during a vascular procedure >250 seconds. Post Procedure: Pulses reassessed and unchanged. PERRLA. Strong, equal hand manager storage bilaterally. No VTE prophylaxis required. Medication's Wasted: Nitro = 49.6 mg. Medication's Wasted: Heparin = 1000 units. Medication's Wasted: Lidocaine 1% = 4 mL. Medication's Wasted: Other = Versed 1 mg. Total IV fluids: 100 mL. Post-op diagnosis: CAD. Complications: None. Estimated blood loss: 5mL-10mL. Responsiveness - Normal response to verbal stimuli; alert and oriented, PERRLA. Vital chart was stopped. Airway - Unaffected, no intervention required; spontaneous ventilation. Circulation: W/N/L, pulses unchanged. Nausea/Vomiting: No. Procedure completed. Patient transferred by wheelchair to 1st floor. Access Site Site: Right Radial artery Sheath Size: 6 Fr Hemostasis Method: TR Band Hemostasis Success: Successful Procedure Medications Start: 4:14 PM Stop: 4:14 PM Medication: Fentanyl Amount: 50 mcg Route: I.V. Start: 4:22 PM Stop: 4:22 PM Medication: Versed Amount: 2 mg Route: I.V. Start: 4:24 PM Stop: 4:24 PM Medication: Fentanyl Amount: 50 mcg Route: I.V. Start: 4:25 PM Stop: 4:25 PM Medication: Nitrogylcerin Amount: 200 mcg Route: I.A. Start: 4:25 PM Stop: 4:25 PM Medication: Verapamil Amount: 5 mg Route: I.A. Start: 4:28 PM Stop: 4:28 PM Medication: Heparin Amount: 5000 units Route: I.V. Start: 4:34 PM Stop: 4:34 PM Medication: Heparin Amount: 3000 units Route: I.V. Start: 4:38 PM Stop: 4:38 PM Medication: Versed Amount: 0.5 mg Route: I.V. Start: 4:39 PM Stop: 4:39 PM Medication: Heparin Amount: 1000 units Route: I.V. Start: 4:45 PM Stop: 4:45 PM Medication: Nitrogylcerin Amount: 200 mcg Route: I.C. Start: 4:47 PM Stop: 4:47 PM Medication: Plavix Amount: 300 mg Route: P.O. Start: 4:50 PM Stop: 4:50 PM Medication: Heparin Amount: 1000 units Route: I.V. I, the attending physician, have reviewed and verified all procedure medications. Yes, all medications given per verbal order History/Risk Factors Hypertension: Yes Peripheral Arterial Disease (PAD): No Myocardial Infarction (CA): Yes Obesity: No Renal Disease: No Tobacco Use: Current/Recent(w/in 1 year) Prior Interventions PCI: Yes CABG: No Valve Surgery: No Report Signatures Finalized by Moshe Campbell MD on 06/07/2022 05:48 PM
--- NOTE | 2022-05-26 16:51 | W.PM.OPSUD ---
Surgery/Procedure H&P Update DATE OF PROCEDURE: May 26, 2022 DATE H&P PERFORMED: 05/26/22 H&P UPDATE INFORMATION: I have reviewed H&P completed within last 30 days, I have examined patient prior to procedure and No changes to prior documentation PREOP DIAGNOSIS: NSTEMI PRIMARY INDICATION FOR PROCEDURE: NSTEMI PLANNED PROCEDURE: Left heart cath with possible percutaneous coronary intervention PATIENT REASSESSED PRIOR TO SEDATION, WITH NO CHANGE NOTED: Yes PHYSICAL EXAM: alert, oriented x 3 and clear to auscultation bilaterally AIRWAY EVAL/ANESTHESIA PLAN: normal airway, ASA III, Local Anesthesia, Risks, benefits & alternatives of sedation and/or procedure discussed and Patient agrees to continue as planned ADDITIONAL INFORMATION: Moderate sedation
[2022-05-26] MEDS: sodium chloride 0.9% 1,000 ML 100 ML IV (18:23)
[2022-05-26] MEDS: morphine IR 15 mg Tablet PO (20:07)
[2022-05-27 01:18] VITALS: BP 121/71; PULSE 73; RESP 18; TEMP 37; O2SAT 92
[2022-05-27] MEDS: sodium chloride 0.9% 1,000 ML 100 ML IV (03:13)
[2022-05-27 04:28] LABS: Albumin Level 3.7 g/dL (3.5-5.2); Anion Gap 15.8 (5-19); Blood Urea Nitrogen 9 mg/dL (6-20); Calcium 8.9 mg/dL (8.5-10.5); Carbon Dioxide 23 mmol/L (22-29); Chloride 102 mmol/L (98-107); Glomerular Filtration Rate 105.8 mL/min (90-130); Glucose 93 mg/dL (65-115); Phosphorus 3.9 mg/dL (2.5-4.5); Potassium 3.8 mmol/L (3.5-5.1); Sodium 137 mmol/L (136-145)
[2022-05-27 04:32] VITALS: BP 135/82; PULSE 78; RESP 15; TEMP 37.1; O2SAT 93
[2022-05-27 05:24] VITALS: PULSE 66
--- NOTE | 2022-05-27 08:48 | PM.PN ---
Subjective Subjective: Patient is doing well. Denies chest pain. She underwent coronary angiogram yesterday that showed 95%stenosis of the proximal LAD that was treated with DESx1. 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 Vitals/I&O/Wt Last Vital Signs Temp 98.8 F 05/27/22 04:32 Pulse 66 05/27/22 05:24 Resp 15 05/27/22 04:32 BP 135/82 05/27/22 04:32 Pulse Ox 93 05/27/22 04:32 O2 Del Method 05/27/22 03:00 05/26/22 05/27/22 05/27/22 22:59 06:59 14:59 Intake Total 480 / 960 1603.333 / 2563.333 120 / 120 Output Total 600 / 600 Balance -120 / 360 1603.333 / 1963.333 120 / 120 Weight last 48 hrs Weight 170 lb Physical Exam Narrative: GENERAL: Patient is alert, awake and oriented x3. [] NECK: No jugular vein distension. [] HEENT: No cyanosis. No icterus. No pallor. [] HEART: Regular S1 and S2. No murmur, rub or gallop. [] LUNGS: Clear to auscultate bilaterally. [] ABDOMEN: Soft, nontender and nondistended. Positive bowel sounds. No guarding, rebound or tenderness. [] CENTRAL NERVOUS SYSTEM: Grossly nonfocal. [] EXTREMITIES: Lower extremities with 1+ edema bilaterally. Pulses palpable in the lower extremities, both dorsalis pedis and posterior tibial. [] Data 05/26/22 03:32 05/27/22 02:35 A&P Assessment and plan (1) NSTEMI (non-ST elevated myocardial infarction): (2) Smoking: (3) CAD (coronary artery disease): (4) Hypertension: Plan Patient presented with non-ST elevation CT. Coronary angiogram showed critical proximal LAD stenosis and underwent successful revascularization with DESx1. Continue aspirin and Plavix. High intensity statin therapy ECHO shows mildly reduced LV systolic function Smoking cessation and lifestyle modifications discussed in detail. Thank you for involving us with care of this patient. Patient is stable to be discharged from cardiology standpoint. Please call with questions Attestations Medical Necessity Statement*: Care expected to cross 2 midnights. 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
[2022-05-27] MEDS: chlorthalidone 25 mg Tablet 12.5 MG PO (09:06)
[2022-05-27] MEDS: aspirin 81 mg EC Tablet PO (09:07)
[2022-05-27] MEDS: metoprolol succinate ER (24 HR) 25 mg Tablet PO (09:07)
[2022-05-27] MEDS: sennosides-docusate Tablet 1 TAB PO (09:07)
[2022-05-27] MEDS: lisinopril 10 mg Tablet PO (09:07)
[2022-05-27] MEDS: atorvastatin 40 mg Tablet 80 MG PO (09:07)
[2022-05-27] MEDS: clopidogrel 75 mg Tablet PO (09:08)
[2022-05-27] MEDS: acetaminophen 500 mg Tablet PO (09:13)
--- NOTE | 2022-05-27 09:29 | PM.DCS ---
Discharge Providers Date of Admission: 05/26/22 16:35 Date of Discharge: May 27, 2022 Attending Provider at Admission: Shelley Bolanos MD Attending Provider at Discharge: Aaron Armas MD Consults: Cardiology Primary Care Provider: UDAY Grant Diagnoses at Discharge Discharge Diagnosis (1) NSTEMI (non-ST elevated myocardial infarction): Status: Acute (2) Smoking: Status: Acute (3) CAD (coronary artery disease): Status: Acute (4) Hypertension: Status: Acute Reason for Visit Reason for Visit: cp Hospital Course Hospital Course Liz Hilton is a 52-year-old female with a past medical history significant for coronary artery disease with prior stent, hypertension, anxiety, and tobacco use disorder who presented with shortness of breath and chest pain, found to have acute coronary syndrome with non-ST elevated myocardial infarction. She was treated with ACS protocol with therapeutic Lovenox, dual antiplatelet therapy with aspirin and plavix, high intensity statin, and beta cyrus. Transthoracic echocardiogram revealed LVEF 45 to 50 percent with moderate diffuse hypokinesis of the mid and apical septum and anteroseptal segments, mild hypokinesis of the basal inferior segment, and diastolic dysfunction. Cardiology was consulted and patient under went cardiac cath with stent placement. She remained chest pain free after procedure. She was counseled on adherence to dual antiplatelet therapy. She was also found to have uncontrolled hypertension for which she was started on several antihypertensives as per discharge medication reconciliation. She was discharged to home in stable condition. She is to follow up with primary care provider and cardiology in clinic. Physical Exam Narrative: General: Patient is awake and alert. No acute distress. Head:? Normocephalic. Atraumatic. EOM intact. Neck: No JVD. Cardiovascular: RRR. No gallops. No murmurs. Lungs: Clear to auscultation, no use of accessory muscles, no crackles or wheezes Skin: No jaundice. No rashes. Abdomen: Normal bowel sounds, abdomen soft and nontender. Genito Urinary: Genital exam not performed since complaints not related. Rectal: Rectal exam not performed since no symptoms indicated blood loss. Extremities: No cyanosis or clubbing. Musculoskeletal: No joint deformities. Neurological: Moves all 4 extremities. No myoclonus. Discharge Data Studies Completed and Pending Completed Studies During Hospitalization Category Date Time Status XR chest 1V portable [id number] Stat Exams 05/25/22 16:37 Completed CV. echo complete* [id number] Routine Ultrasound 05/25/22 20:50 Completed Pending at discharge Category Date Time Status [employer] request for service Routine Exams 05/26/22 15:58 Taken Sestamibi Stress Test Request Routine Exams 05/25/22 20:50 Stop Req Radiology Impressions Chest X-Ray 05/25/22 16:37 IMPRESSION: No acute findings. Laboratory Results WBC 9.0 10^3/uL (4.0-10.0) 05/26/22 03:32 RBC 4.28 10^6/uL (4.1-5.3) 05/26/22 03:32 Hgb 12.6 g/dL (11.5-15.3) 05/26/22 03:32 Hct 39.6 % (37.0-47.0) 05/26/22 03:32 MCV 92.5 fl (81-99) 05/26/22 03:32 MCH 29.4 pg (28.0-34.0) 05/26/22 03:32 MCHC 31.8 g/dL (30.0-36.0) 05/26/22 03:32 RDW 14.5 % (12.1-15.1) 05/26/22 03:32 Plt Count 155 10^3/cmm (130-400) 05/26/22 03:32 MPV 9.6 fL (7.4-10.4) 05/26/22 03:32 Neut % (Auto) 64.6 % 05/26/22 03:32 Lymph % (Auto) 26.1 % 05/26/22 03:32 [place] % (Auto) 7.2 % 05/26/22 03:32 Eos % (Auto) 1.4 % 05/26/22 03:32 Baso % (Auto) 0.4 % 05/26/22 03:32 Neut # (Auto) 5.78 10^3/uL (1.8-7.7) 05/26/22 03:32 Lymph # (Auto) 2.3 10^3/uL (0.8-4.8) 05/26/22 03:32 [place] # (Auto) 0.7 10^3/uL (0.2-0.9) 05/26/22 03:32 Eos # (Auto) 0.1 10^3/uL (0.0-0.8) 05/26/22 03:32 Baso # (Auto) 0.0 10^3/uL (0.0-0.1) 05/26/22 03:32 Nucleated RBC % (auto) 0 % 05/26/22 03:32 Nucleated RBCs # 0.0 /100WBC 05/26/22 03:32 D-Dimer 0.40 ug/mIFEU (0-0.59) 05/25/22 19:15 Sodium 137 mmol/L (136-145) 05/27/22 02:35 Potassium 3.8 mmol/L (3.5-5.1) 05/27/22 02:35 Chloride 102 mmol/L (98-107) 05/27/22 02:35 Carbon Dioxide 23 mmol/L (22-29) 05/27/22 02:35 Anion Gap 15.8 (5-19) 05/27/22 02:35 BUN 9 mg/dL (6-20) 05/27/22 02:35 Creatinine 0.6 mg/dL (0.5-0.9) 05/27/22 02:35 GFR Calculation 105.8 mL/min (90-130) 05/27/22 02:35 Glucose 93 mg/dL (65-115) 05/27/22 02:35 Calculated Osmolality 286 mOsm/kg (285-295) 05/26/22 03:32 Calcium 8.9 mg/dL (8.5-10.5) 05/27/22 02:35 Phosphorus 3.9 mg/dL (2.5-4.5) 05/27/22 02:35 Magnesium 2.0 mg/dL (1.7-2.3) 05/26/22 03:32 Total Bilirubin 0.2 mg/dL (0.15-1.2) 05/25/22 17:20 AST 14 U/L (0-32) 05/25/22 17:20 ALT 12 U/L (0-33) 05/25/22 17:20 Alkaline Phosphatase 125 U/L (35-105) H 05/25/22 17:20 Troponin T Gen 5 ng/L 977 ng/L (0-10) H* 05/26/22 08:40 Troponin T Baseline 98 ng/L (0-10) H 05/25/22 17:20 Troponin T 120 Minute 180.4 ng/L (0-10) H 05/25/22 20:14 Delta Troponin T 82.4 ABS# (0-10) H* 05/25/22 20:14 Troponin T Hi Sens 6Hr 322.1 ng/L (0-10) H 05/25/22 23:24 Troponin T Hi Sens 6Hr Delta 224.1 ng/L (0-12) H* 05/25/22 23:24 C-Reactive Protein 26.3 mg/L (0.0-4.9) H 05/26/22 03:32 Total Protein 7.4 g/dL (6.6-8.7) 05/25/22 17:20 Albumin 3.7 g/dL (3.5-5.2) 05/27/22 02:35 Globulin 3.3 g/dL (1.3-4.6) 05/25/22 17:20 Vitamin B12 273 pg/mL (232-1245) 05/25/22 20:14 TSH 1.89 uIU/mL (0.27-4.20) 05/25/22 20:14 Urine Opiates Screen Negative ng/mL (Negative) 05/25/22 19:20 Ur Barbiturates Screen Negative ng/mL (Negative) 05/25/22 19:20 Ur Phencyclidine Scrn Negative ng/mL (Negative) 05/25/22 19:20 Ur Amphetamines Screen Negative ng/mL (Negative) 05/25/22 19:20 U Benzodiazepines Scrn Negative ng/mL (Negative) 05/25/22 19:20 Urine Cocaine Screen Negative ng/mL (Negative) 05/25/22 19:20 U Marijuana (THC) Screen Positive ng/mL (Negative) H 05/25/22 19:20 Vitals Last Vital Signs Temp 98.8 F 05/27/22 04:32 Pulse 66 05/27/22 05:24 Resp 15 05/27/22 04:32 BP 135/82 05/27/22 04:32 Pulse Ox 93 05/27/22 04:32 O2 Del Method 05/27/22 03:00 Discharge Plan Discharge Patient Disposition: Home Condition: Stable Prescriptions: New clopidogrel 75 mg Tablet 75 mg PO DAILY 30 Days Qty: 30 11RF metoprolol succinate 25 mg Tablet Extended Release 24 Hr 25 mg PO DAILY 30 Days Qty: 30 0RF chlorthalidone 25 mg Tablet 12.5 mg PO DAILY 30 Days Qty: 30 0RF atorvastatin 40 mg Tablet 80 mg PO DAILY 30 Days Qty: 30 0RF lisinopril 10 mg Tablet 10 mg PO DAILY 30 Days Qty: 30 0RF nitroglycerin 0.4 mg Tablet, Sublingual 0.4 mg sublingual Q5M PRN (Reason: Chest Pain) 30 Days Qty: 100 0RF Continued THC gummy 1 gummy as directed PRN PRN (Reason: Pain) aspirin 81 mg Tablet,Delayed Release (Dr/Ec) 81 mg PO DAILY Hold Instructions: Resume on 03/01/22. Rx Instructions: Takes 81 mg PO daily for 6 months and then stops for 6 months due to stomach upset Discharge Orders: Discharge Order (Routine); Ordered 05/27/22 Ordered By: Aaron Armas Referrals: Moshe Campbell M.D [Physician] - 2 weeks Sebas De La Cruz FNP [Primary Care Provider] - 4-7 days Discharge Diet: Cardiac Discharge Activity: Increase activity as tolerated and As per cardiac/pulm rehab instructions Patient Instructions: Atenolol/Chlorthalidone (By mouth) (Tenoretic 100, Tenoretic 50), Metoprolol (By mouth) (Lopressor, Toprol XL), Nitroglycerin (By mouth) (Nitro-Time), Lisinopril (By mouth) (Prinivil, Zestril), Atorvastatin (By mouth) (Lipitor), Clopidogrel (By mouth) (Plavix), Opioid Safety Activity Restrictions/Additional Instructions: 1. Take medications as prescribed. 2. No strenuous activity for three weeks 3. Follow up with primary care provider 4. Follow up with cardiology 5. Establish care with cardiac rehab Discharge Attestations Time Spent in Discharge Care*: greater than 30 min Status at Discharge: Overall status at discharge: patient is progressing back to baseline Quality Metrics Clinical Quality Measures [ No reported AMI, CVA or VTE this stay] Coding Level of Care Code Acute Chg FW DC note Diagnoses NSTEMI (non-ST elevated myocardial infarction) I21.4 Smoking F17.200 CAD (coronary artery disease) I25.10 Hypertension I10
[2022-05-27 09:41] VITALS: BP 155/88; PULSE 72; RESP 21; TEMP 36.9; O2SAT 96
--- NOTE | 2022-05-27 09:43 | PC.CHAP ---
Pastoral Care Encounter/Spiritual Assessment Type of Contact [] Declined float nurse visit [] Patient/Family/Request visit [] Outpatient visit [] Follow-up visit [] Physician referral [] Code/Alert [x] Routine visit [] Staff referral [] Actively dying [] Patient sleeping [] Family support [] [] Out of room [] Palliative care [] [] Receiving care in room [] Pre-surgical visit [] Trauma [] Long length of stay [] ICU visit [] Other: Relational/Emotional Strength [x] Patient feels connected with others/family/visitors/staff [] Distress [] Loneliness/isolation [] Abandonment Spirituality of Patient [] Person of Julieta [] Attends Gnosticist of their Julieta [] Believes in Prayer [] Reads Bible or Mu-Ism materials [] There are Spiritual issues to be addressed Scale Shooter Interventions [x] Prayer [] Active listening [] Non-anxious presence [] Spiritual/emotional support [] Crisis/trauma care [] Spiritual counseling [] Bereavement support [] Provided bereavement packet [] Provided Bible/devotional materials [] Provided toy/stuffed animal, coloring book to patient or family member [] Provided Communion [] Anointing/[place] [] Salvation [x] Completed spiritual assessment [] Other: Impact on Illness or Injury [] Angry [] Fearful [] Anxious [] Often cries [] Exhaustion [] Unable to work [] Unable to attend bahai [] Unable to walk/stand [] Unable to read [] Unable to drive [] Unable to eat/drink [] Unable to sleep [] Unable to be with family [] Patient intubated [] Other: Summary Time spent with patient 5 min
[2022-05-27 09:44] VITALS: PULSE 70; RESP 18; O2SAT 97
--- NOTE | 2022-05-27 10:20 | PC.NURSE ---
Patient discharged at 1019am with discharge instructions and education given. Patient verbalized understanding of all instructions. Medication sent to prefer pharmacy. Patient ambulated to the main entrance with nurse where daughter was waiting.
== END 2022-05-27 10:19 | disposition home or self-care (01) | DRG 247 ==
LOC: ER 20:48 → CSU 20:49
PROVIDERS: Internal Medicine; Admitting Provider Internal Medicine; Emergency Provider Family Medicine; PCP Registered Nurse; Visit Provider Internal Medicine
PROC: 027034Z Dilation of Coronary Artery, One Artery with Drug-eluting Intraluminal Device, Percutaneous Approach (ICD-10-PCS; principal; 2022-05-26 16:30)
PROC: 027034Z Dilation of Coronary Artery, One Artery with Drug-eluting Intraluminal Device, Percutaneous Approach (ICD-10-PCS; 2022-05-26 16:30)
DX: I21.4 Non-ST elevation (NSTEMI) myocardial infarction (principal); I25.110 Atherosclerotic heart disease of native coronary artery with unstable angina pectoris; Z95.5 Presence of coronary angioplasty implant and graft; F17.200 Nicotine dependence, unspecified, uncomplicated; F41.9 Anxiety disorder, unspecified; F12.90 Cannabis use, unspecified, uncomplicated; I25.2 Old myocardial infarction; I10 Essential (primary) hypertension; Z79.82 Long term (current) use of aspirin
CPT/HCPCS: 36415; 71045; 80048; 80053; 80069; 80306; 82607; 83735; 84443; 84484; 85025; 85347; 85378; 86140; 90471; 90686; 93005; 93306; 93454; 96361; 96372; 96374; 99152; 99153; 99285; C1725; C1769; C1874; C1887; C1894; C9600; G0378; J0360; J1644; J1650; J2250; J2270; J2405; J3010; J3490; J7030; Q9967

== ENCOUNTER → 2022-06-03 10:28 | Outpatient (BNVA) | payer BC, MEDICAID, SELFPAY | PROVIDERS: PCP Registered Nurse; Visit Provider Nurse Practitioner Family | DX: I25.10 Atherosclerotic heart disease of native coronary artery without angina pectoris (principal) | CPT/HCPCS: 36415; 80048 ==

== ENCOUNTER → 2022-06-09 11:39 | Outpatient (BNVA) | payer BC, MEDICAID, SELFPAY | PROVIDERS: PCP Registered Nurse; Visit Provider Registered Nurse | DX: Z01.419 Encounter for gynecological examination (general) (routine) without abnormal findings (principal); Z71.85 Encounter for immunization safety counseling; Z71.3 Dietary counseling and surveillance | CPT/HCPCS: 87624 ==

== ENCOUNTER 2022-08-05 10:30 | Outpatient (CLI) | payer BC, MEDICAID, SELFPAY ==
[2022-08-05 12:45] LABS: Anion Gap 14.1 (5-19); Blood Urea Nitrogen 7 mg/dL (6-20); Carbon Dioxide 27 mmol/L (22-29); Chloride 105 mmol/L (98-107); Glomerular Filtration Rate 105.8 mL/min (90-130); Glucose 84 mg/dL (65-115); NT Pro B Type Natriuretic Pept 568 pg/mL (0-125); Osmolality Calculated 291 mOsm/kg (285-295); Potassium 4.1 mmol/L (3.5-5.1); Sodium 142 mmol/L (136-145)
== END 2022-08-05 10:31 | disposition home or self-care (01) ==
LOC: LAB 10:34
PROVIDERS: PCP Registered Nurse; Visit Provider Internal Medicine
DX: I10 Essential (primary) hypertension (principal)
CPT/HCPCS: 36415; 80048; 83880

== ENCOUNTER 2023-01-23 10:34 | Outpatient (CLI) | payer BC, MEDICAID, SELFPAY ==
[2023-01-23 11:33] LABS: Blood Urea Nitrogen 8 mg/dL (6-20); Calcium 9.1 mg/dL (8.5-10.5); Carbon Dioxide 24 mmol/L (22-29); Chloride 99 mmol/L (98-107); Glomerular Filtration Rate 88.2 mL/min (90-130); Glucose 128 mg/dL (65-115); NT Pro B Type Natriuretic Pept 107 pg/mL (0-125); Osmolality Calculated 276 mOsm/kg (285-295); Sodium 133 mmol/L (136-145)
== END 2023-01-23 10:35 | disposition home or self-care (01) ==
PROVIDERS: PCP Registered Nurse; Visit Provider Nurse Practitioner Family
DX: I10 Essential (primary) hypertension (principal); I25.10 Atherosclerotic heart disease of native coronary artery without angina pectoris
CPT/HCPCS: 36415; 80048; 83880

== ENCOUNTER 2023-01-27 08:13 | Outpatient (CLI) | payer BC, MEDICAID, SELFPAY ==
--- NOTE | 2023-01-27 08:45 | USCV_ITS ---
Liz Hilton Age: 53 Gender: F : 1970 Exam Date: 01/27/2023 08:34 Ordering Phys: Yajaira Lemus Technologist: CT Exam Location: [facility] – [place]_ Indication: nstemi BP: 135 / 70 HR: 51 Rhythm: Sinus Technical Quality: Adequate MEASUREMENTS (Male / Female) Normal Values 2D ECHO LV Chamber Size 4.8 cm RV Chamber Size 4.0 cm LVOT Diameter 2.1 cm LV Ejection Fraction MOD 2C 43.1 % LV Ejection Fraction 2C AL 43.6 % LA Diameter 4.0 cm LA Width 3.4 cm LA Height 5.0 cm RA Width 3.3 cm RA Height 4.2 cm Aorta at Sinotubular Diameter 2.9 cm IVC Diameter 1.5 cm M-MODE Aortic Annulus Diameter 3.0 cm LA Ao Ratio MM 1.4 MV E Point Septal Separation 0.6 cm DOPPLER AV Peak Velocity 131.0 cm/s LVOT Peak Velocity 94.0 cm/s AV Area Cont Eq vti 2.4 cm squared AV Area Cont Eq pk 2.4 cm squared MV Peak Velocity 90.0 cm/s MV Area PHT 4.4 cm squared Mitral E to A Ratio 1.3 MV E' Velocity 53.5 cm/s Mitral E to MV E' Ratio 9.3 Mitral E to LV E' Lateral Ratio 9.3 Mitral E to LV E' Septal Ratio 9.3 TR Peak Velocity 97.0 cm/s TR Peak Gradient 3.8 mmHg TV Peak E Velocity 77.0 cm/s Right Atrial Pressure 3.0 mmHg Pulmonary Artery Systolic Pressu 6.8 mmHg PV Peak Velocity 82.0 cm/s FINDINGS Left Ventricle Left ventricle is normal in size. LV systolic function is normal with EF 50 to 55%. No regional wall motion abnormalities are seen. Right Ventricle Normal in size and function Right Atrium Normal in size Left Atrium Normal in size Mitral Valve Structurally normal mitral valve. Trace mitral regurgitation. Aortic Valve Structurally normal aortic valve. No significant stenosis or regurgitation. Tricuspid Valve Trace tricuspid regurgitation. Insufficient TR jet to calculate RVSP Pulmonic Valve Not well visualized Pericardium Normal Aorta Normal in size IVC Appears to be normal CONCLUSIONS LV systolic function is normal with EF 50 to 55% Trace mitral regurgitation Trace tricuspid regurgitation Compared to prior echocardiogram from 05/2022, LV systolic function has improved slightly. Moshe Campbell MD (Electronically Signed) Final Date: 05 February 2023 13:36 S
== END 2023-01-27 08:14 | disposition home or self-care (01) ==
LOC: RAD 08:15
PROVIDERS: PCP Registered Nurse; Visit Provider Nurse Practitioner Family
DX: I21.4 Non-ST elevation (NSTEMI) myocardial infarction (principal); I08.1 Rheumatic disorders of both mitral and tricuspid valves
CPT/HCPCS: 93306

== ENCOUNTER 2023-08-09 10:02 | Outpatient (CLI) | payer BC, MEDICAID, SELFPAY ==
--- NOTE | 2023-08-09 10:07 | MM_ITS ---
WS: [id number] BILATERAL SCREENING DIGITAL TOMOSYNTHESIS MAMMOGRAM WITH CAD HISTORY: SCREENING COMPARISON: 05/19/2022, 07/14/2017 Bilateral CC and MLO views with tomosynthesis and synthetic mammography submitted. Computer aided det ection analyzed. Breast composition: There are scattered areas of fibroglandular density. No suspicious masses, microc alcifications or architectural distortion. There is a benign lymph node in the posterior central LEFT breast which is stable over multiple prior years. IMPRESSION: MM/[place] [id number] BI-RADS: 2-Benign FOLLOW UP: 1 Year Follow-up
== END 2023-08-09 10:03 | disposition home or self-care (01) ==
LOC: RAD 10:03
PROVIDERS: PCP Registered Nurse; Visit Provider Registered Nurse
DX: Z12.31 Encounter for screening mammogram for malignant neoplasm of breast (principal); R92.323 Mammographic fibroglandular density, bilateral breasts
CPT/HCPCS: 77063; 77067

== ENCOUNTER 2024-09-16 10:56 | Outpatient (CLI) | payer OTHER, SELFPAY ==
--- NOTE | 2024-09-16 11:00 | MM_ITS ---
WS: [id number] BILATERAL 3D TOMOSYNTHESIS DIGITAL SCREENING MAMMOGRAPHY WITH CAD CLINICAL INFORMATION: SCREENING HISTORY: Screening mammogram. No current complaints. COMPARISON: 2023 TECHNIQUE: Bilateral CC and MLO views. FINDINGS: Scattered fibroglandular densities bilaterally. No suspicious focal mass, asymmetry, calcifications, or architectural distortion. No evidence of malignancy. Stable incidental LEFT intramammary lymph node MM/MM scr BI tomosynthesis [id number] IMPRESSION: DENSITY: There are scattered areas of fibroglandular density. BI-RADS: 2 - Benign. FOLLOW UP: 1 Year Follow-up Recommend return to annual screening mammography.
== END 2024-09-16 10:57 | disposition home or self-care (01) ==
LOC: RAD 10:57
PROVIDERS: PCP Registered Nurse; Visit Provider Registered Nurse
DX: Z12.31 Encounter for screening mammogram for malignant neoplasm of breast (principal); R92.323 Mammographic fibroglandular density, bilateral breasts; R59.0 Localized enlarged lymph nodes
CPT/HCPCS: 77063; 77067